=== PATIENT | female | born 1980 | race Caucasian/White ===

== ENCOUNTER 2019-01-09 01:09 | Emergency (ER) | payer SELFPAY ==
[~2019-01-09] VITALS: Ht 160 cm; Wt 81.7 kg
[~2019-01-09 01:09] MED LIST: ACET500C5 PO; AMLO2.5T78 PO; COU5 PO; FIORICET PO; MECL12.5 PO; ONDA4TAB8 PO
[2019-01-09 01:14] VITALS: BP 161/94; PULSE 73; RESP 20; Ht 160 cm; Wt 81.7 kg
== END 2019-01-09 02:03 | disposition left against medical advice (07) ==
LOC: E/R 01:09
DX: Z53.21 Procedure and treatment not carried out due to patient leaving prior to being seen by health care provider (principal)